=== PATIENT | female | born 1950 | race Caucasian/White ===

== ENCOUNTER 2021-12-22 09:03 | Inpatient (IN) | payer MEDICARE, OTHER, SELFPAY ==
[2021-12-21 21:01] VITALS: BMI 35.3
[2021-12-21 21:10] VITALS: BP 132/60; PULSE 65; RESP 16; TEMP 36.7; O2SAT 95
--- NOTE | 2021-12-21 21:17 | PCM.HP.STD ---
Documented by User: YOLIS Newman 12/21/21 21:36 HPI - General General Date of Admission: 12/21/21 Date of Service: 12/21/21 Chief Complaint: Abdominal pain HPI Mitra WOO, is a 71 F who presents from an outside ER with complaints of abdominal pain. Patient was transferred to [facility] for gastroenterology which outside ER does not have available. Patient states that she has had abdominal pain on and off for a month but is becoming increasingly more consistent and worsening over the past week. Patient reports a history of hypertension and GERD. Of note patient's outside laboratory values are as follows lipase 195, Sodium 141, potassium 3.3, chloride 104, CO2 26.6, glucose 159, BUN 12, creatinine 0.93, AST 193, alk phos 451, calcium 9.0, total protein 7.8, albumin 2.9, total bili 5.3, ALT 309, anion gap 14, GFR 59. White blood cell 11.8, RBC 4.62, hemoglobin 12.3, hematocrit 38.1, platelet 473. Patient also has elevated CRP at 5.7 PFSH Medical History GERD (gastroesophageal reflux disease) Hypertension Home Medications olmesartan 20 mg tablet 20 mg PO DAILY HTN 12/21/21 [History Last Taken 12/21/21] omeprazole 20 mg capsule,delayed release 20 mg PO DAILY GERD 12/21/21 [History Last Taken 12/21/21] Allergy/AdvReac Type Severity Reaction Status Date / Time No Known Allergies Allergy Verified 12/21/21 21:01 Family History Other Alzheimer disease Breast cancer Surgical History H/O knee surgery Hx of tonsillectomy Social History Smoking Status: Never smoker ROS Constitutional Constitutional: Denies anorexia, chills, fatigue, fever(s), night sweats or weakness Cardiovascular Cardiovascular: Denies chest pain, edema or palpitations Respiratory/Chest Respiratory/Chest: Denies cough, shortness of breath at rest, shortness of breath with exertion or wheezing Gastrointestinal Gastrointestinal: Reports abdominal pain, nausea and vomiting; Denies constipation or diarrhea Genitourinary Genitourinary: Denies dysuria Musculoskeletal Musculoskeletal: Denies back pain, extremity pain or joint pain Integumentary Integumentary: Denies dry skin Neurologic Neurologic: Denies abnormal gait, abnormal speech, confusion or dizziness Psychiatric Psychiatric: Denies anxiety or depression Endocrine Endocrinology: Denies change in body appearance Hematologic/Lymphatic Hematologic/Lymphatic: Denies anemia Vital Signs Vital Signs Vital Signs: 12/21/21 21:10 Temperature 98.0 F Temperature Source Oral Pulse Rate 65 Respiratory Rate 16 Blood Pressure 132/60 H Blood Pressure Mean 84 Blood Pressure Source Monitor Blood Pressure Position Semi-Fowlers Blood Pressure Location Left Forearm Pulse Ox 95 Oxygen Delivery Method Room Air Weight Weight: 205 lb 11.06 oz Body Mass Index (BMI) 35.3 Physical Exam Const alert, oriented x3 and no apparent distress HEENT normocephalic and head/scalp atraumatic Eyes conjunctivae normal and no scleral icterus Neck no lymphadenopathy and supple General: trachea midline Resp normal respiratory effort, normal air movement and clear to auscultation bilaterally Cardio regular rate, regular rhythm, S1 normal heart sound, S2 normal heart sound and peripheral pulses 2+ throughout GI normal to inspection, nondistended, normoactive bowel sounds Palpation: tender epigastric and RUQ Extremity normal capillary refill and no clubbing, cyanosis or edema Skin General Skin Exam: no breakdown Lesions: no lesions Rashes: no rashes Neuro no focal motor deficits and no sensory deficits noted Speech: speech normal Psych thought process normal, cooperative and affect normal Appearance: appropriate Assessment & Plan Assessment/Plan (1) Choledocholithiasis: PLAN: Plan 1.Choledocholithiasis -Admit to [facility] -Consult gastroenterology, case discussed with Dr. Fritz. Plan for patient to have ERCP in a.m. -N.p.o. -As needed Zofran and morphine ordered for nausea and pain -Continue IV Zosyn, patient received first dose at outside ER as patient has an elevated white blood cell count of 11.8 -Normal saline 100 mL/h ordered -CT abdomen and pelvis with contrast demonstrates 10 mm hypodensity in the left hepatic lobe that is likely a cyst. There is intrahepatic biliary dilatation. No other focal abnormalities identified. The gallbladder is distended and measures 12 x 6 x 5 cm. There are foci mildly increased attenuation in the dependent aspect of the gallbladder likely representing sludge or small calculi. The common bile duct measures 2.1 cm. There is a suggestion of an 8 mm calculus or debris at the ampulla of Vater. A small umbilical hernia with fat is also present. Abdomen and pelvis CT is otherwise unremarkable. -CBC, CMP, Phos, mag ordered for a.m. 2. Hypokalemia -Potassium 3.3, likely secondary to nausea and vomiting -Potassium chloride 40 mEq p.o. x1 ordered -CMP in a.m. 3. GERD -Patient n.p.o., IV pantoprazole given in place of p.o. omeprazole 4. Hypertension -Vital signs per protocol, currently stable -Hold olmesartan while n.p.o. -As needed hydralazine IV ordered for systolic blood pressure greater than 160 DVT prophylaxis-SCDs, pharmacological prophylaxis held in anticipation of surgical procedure This patient was seen by Florence Knutson NP-C under the supervision of Dr. Kevin. 28 minutes spent in clinical coordination of patient's plan of care. Documented by User: Dr. Frederic Kevin MD 12/22/21 01:21 HPI - General General Date of Admission: 12/21/21 [facility] Medical History GERD (gastroesophageal reflux disease) Hypertension Home Medications olmesartan 20 mg tablet 20 mg PO DAILY HTN 12/21/21 [History Last Taken 12/21/21] omeprazole 20 mg capsule,delayed release 20 mg PO DAILY GERD 12/21/21 [History Last Taken 12/21/21] Allergy/AdvReac Type Severity Reaction Status Date / Time No Known Allergies Allergy Verified 12/21/21 21:01 Family History Other Alzheimer disease Breast cancer Surgical History H/O knee surgery Hx of tonsillectomy Social History Smoking Status: Never smoker Assessment & Plan Assessment/Plan (1) Choledocholithiasis: Charges/Coding Addendum Addendum: Patient was seen and examined independently. I agree with assessment and plan by Florence Knutson, CARLOS A-C. Patient is 71-year-old female with a significant history of hypertension and GERD who presented to [facility] with 1 month history of abdominal pain that span across her upper abdomen. Patient's symptoms originally was episodic and then became persistent and constant. Earlier in the morning on the same day that she went to [facility] she initially went to see her PCP. She reports that her abdominal pain was exacerbated by her PCP palpating her abdomen. From her PCPs office and she went to the lab. Later in the same day her daughter took her to [facility] because of abdominal pain. Associated with her symptoms is dark yellow urine, nausea and vomiting. [facility] a [facility] scan of abdomen and pelvis with contrast showed biliary stones. The case was discussed with GI specialist at [facility] and hospitalist and patient was transferred to [facility]. Physical exam: General: Well-nourished, well-developed. Head: Normocephalic, atraumatic, no tenderness Eyes: Vision is grossly intact. EOMI ENT, no trauma, moist mucous membranes, no rhinorrhea Neck: Nontender, full range of motion, no spinal tenderness, deformities, step-off CVS: Regular rate and rhythm. S1-S2 present. No murmur, gallop or rub. Respiratory : clear to auscultation bilaterally, chest wall nontender, no wheezing Abdomen: Soft, nontender, nondistended, normal bowel sounds, no masses : Deferred Back: Nontender, no CVA tenderness. Extremities: Nontender full range of motion, no trauma Skin: Normal color, no trauma, abrasions Neuro: Alert, oriented, cranial nerves II through XII grossly intact. Psychiatry: Normal mood. Normal affect. Not depressed. Not anxious. Assessment and plan Cholelithiasis with acute choledocholithiasis. By radiologist interpretation CT of abdomen and pelvis at outside hospital showed distended gallbladder with debris's versus small calculi independent aspect of the gallbladder. Intrahepatic biliary dilatation. Common bile duct measuring 2.1 cm. Calculus versus debris at the ampulla. Review of outside hospital labs showed elevated AST, elevated ALT, elevated alkaline phosphatase and elevated total bilirubin of 5.3. There is no evidence of cholecystitis at this time. White count 11.8 at outside hospital. Patient was given Zosyn at outside hospital. In the setting of patient's getting a possible ERCP in a.m. will continue Zosyn for now. NPO. GI consult. General surgery consult. Supportive treatment with IV fluids, as needed IV antiemetics and as needed IV morphine for pain. Trend CBC and BMP. Hypokalemia Potassium 3.3 at outside hospital. Replaced. Trend CMP. Hypertension Blood pressure is stable. Hold home p.o. blood pressure medication secondary to n.p.o. status. As needed hydralazine ordered. Trend blood pressure and adjust blood pressure medications. GERD On home pantoprazole. While n.p.o. change to IV Protonix. DVT prophylaxis: SCD. Thirty-two minutes was spent independently and seeing patient; reviewing charts and discussing case with nursing team. Visit Charges Inpatient E&M: 31745 Init Hosp L3
[2021-12-21] MEDS: 0.9% Saline Lock 10 ML Syringe IV (21:22)
[2021-12-21] MEDS: Ondansetron 4 MG/2 ML Vial IV (21:22)
[2021-12-21] MEDS: 0.9% Normal Saline 1,000 ML 100 ML IV (21:23)
[2021-12-22] VITALS (12 sets, daily range): BP systolic 132–157; BP diastolic 60–89; PULSE 65–113; RESP 14–18; TEMP 36.6–37.6; O2SAT 92–98; BMI 35.3
[2021-12-22] MEDS: 0.9% Saline Lock 10 ML Syringe IV (01:08)
[2021-12-22] MEDS: proCHLORPERazine 10 MG/2 ML Vial 5 MG IV (01:08)
[2021-12-22] MEDS: Potassium Chloride Oral Tablet 20 MEQ 40 MEQ PO (02:35)
[2021-12-22 04:59] LABS: Absolute Lymphocyte Count 0.96 X10^3/uL (0.83-4.51); Absolute Neutrophil Count 7.6 X10^3/uL (2.0-7.7); Basophil# 0.02 X10^3/uL; Basophil% 0.2 % (0-1); Eosinophil# 0.01 X10^3/uL; Eosinophils% 0.1 % (0-5); Hematocrit 36.2 % (37-47); Hemoglobin 11.2 g/dL (12.0-15.0); Lymphocyte # 0.96 X10^3/ul (0.83-4.51); Lymphocyte % 10.3 % (19-41); Mean Corp Hgb Conc 30.9 g/dL (32-36); Mean Corpuscular Hgb 26.4 pg (27.0-32.0); Mean Corpuscular Volume 85.2 fL (81-99); Mean Platelet Vol. 10.5 fl (6.2-12.0); Monocyte# 0.75 X10^3/uL; NRBC Flagged by Analyzer 0 % (0-5); Neutrophil # 7.55 X10^3/uL (2.7-7.7); Neutrophil % 80.9 % (47-70); Platelet Count 381 K/mm3 (150-450); RBC Distribution Width SD 49.4 fl (35.1-43.9); Red Blood Count 4.25 M/mm3 (4.2-5.4); White Blood Count 9.3 K/mm3 (4.4-11.0)
[2021-12-22 05:35] LABS: Anion Gap 9 (5-15); BUN 12 mg/dL (7-18); BUN/Creat Ratio 15.9 RATIO (10-20); Calcium,Total 8.5 mg/dL (8.5-10.1); Chloride 113 mmol/L (98-107); Creatinine, Serum 0.76 mg/dL (0.55-1.02); EST Glomerular Filtration Rate 80 mL/min (>60); Est Glom Filt Rate - Afr Amer 97 mL/min (>60); Estimated Creatinine Clearance 43.91 ml/min; Glucose 122 mg/dL (74-106); Magnesium 1.9 mg/dL (1.6-2.6); Phosphorus 3.5 mg/dL (2.5-4.9); Potassium 3.6 mmol/L (3.5-5.1); Sodium Level 145 mmol/L (136-145)
--- NOTE | 2021-12-22 06:00 | EKG12_ITS ---
Test Reason : AM EKG Blood Pressure : / mmHG Vent. Rate : 065 BPM Atrial Rate : 065 BPM P-R Int : 152 ms QRS Dur : 114 ms QT Int : 418 ms P-R-T Axes : 044 -04 004 degrees QTc Int : 434 ms Normal sinus rhythm with sinus arrhythmia Incomplete right bundle branch block Confirmed by TODD DECKER, MICHEL ([id number]), acquisitions editor HAWK GOMEZ ([id number]) on 12/23/2021 9:12:48 AM Referred By: JJ Confirmed By:MICHEL BROOKS MD
[2021-12-22] MEDS: 0.9% Normal Saline 1,000 ML 100 ML IV ×2 (08:42→21:32)
[2021-12-22 08:44] LABS: AST(SGOT) 156 U/L (15-37); Alanine Aminotransfer ALT/SGPT 247 U/L (13-56); Albumin, Serum 2.3 g/dL (3.2-5.0); Alkaline Phosphatase 348 U/L (45-117); Bilirubin, Direct 4.15 mg/dL (0.00-0.30); Protein, Total 6.3 g/dL (6.4-8.2)
--- NOTE | 2021-12-22 10:07 | CON.PCM.SX_ITS ---
Assessment & Plan Assessment/Plan (1) Choledocholithiasis: PLAN: I have been consulted in conjunction with Dr. Albright. She will indepen dently evaluate this patient. Patient is scheduled to have an ERCP with Dr. Fritz today. Dr. Albright will plan to perform a laparoscopic cholecystectomy. Procedure details, risks and benefits have been explained. Patient has had the opportunity to ask and have questions answered. Patient verbally understands and agrees with the plan. NPO after midnight. Thank you for allowing us to participate in this patient's care. HPI Consult Data Date of Consult: 12/22/21 HPI Narrative Reason for Consultation: Choledocholithiasis HPI Narrative: MAY WOO, is a 71 F who was transferred from [facility] with choledocholithiasis. Patient stated for the last 1 month, she has had an increase in GERD symptoms. She noted over the weekend she had upper abdominal pain associated with GERD symptoms. Patient notes she is on 20 mg omeprazole. She notes this typically resolves her heartburn symptoms. Patient noted she had a routine follow-up yesterday with her PCP, who ordered lab work due to her presenting symptoms. Patient noted she continued with band-like abdominal pain and could not get comfortable throughout the evening and night. She noted she decided to go to the ED. She denies previous gallbladder issues or attacks. She denies associated nausea, vomiting. She notes a lack of appetite. She denies previous abdominal surgeries. She notes nausea with anesthesia. She has had multiple orthopedic procedures and tonsillectomy. CT scan of ab/pel from [place] demonstrated dilated bile ducts, cholecystitis, large gallstone. Patient also has elevated liver enzymes. [facility] Medical History GERD (gastroesophageal reflux disease) Hypertension Home Medications olmesartan 20 mg tablet 20 mg PO DAILY HTN 12/21/21 [History Last Taken 12/21/21] omeprazole 20 mg capsule,delayed release 20 mg PO DAILY GERD 12/21/21 [History Last Taken 12/21/21] Allergy/AdvReac Type Severity Reaction Status Date / Time No Known Allergies Allergy Verified 12/21/21 21:01 Family History Other Alzheimer disease Breast cancer Surgical History H/O knee surgery Hx of tonsillectomy Social History Smoking Status: Never smoker ROS Constitutional Constitutional: Reports systems reviewed and no addt'l complaints, except as documented Eyes Eyes: Reports systems reviewed and no addt'l complaints, except as documented ENT HEENT: Reports systems reviewed and no addt'l complaints, except as documented Cardiovascular Cardiovascular: Reports systems reviewed and no addt'l complaints, except as documented Respiratory/Chest Respiratory/Chest: Reports systems reviewed and no addt'l complaints, except as documented Gastrointestinal Gastrointestinal: Reports systems reviewed and no addt'l complaints, except as documented Genitourinary Genitourinary: Reports systems reviewed and no addt'l complaints, except as documented Musculoskeletal Musculoskeletal: Reports systems reviewed and no addt'l complaints, except as documented Integumentary Integumentary: Reports systems reviewed and no addt'l complaints, except as documented Neurologic Neurologic: Reports systems reviewed and no addt'l complaints, except as documented Psychiatric Psychiatric: Reports systems reviewed and no addt'l complaints, except as documented Endocrine Endocrinology: Reports systems reviewed and no addt'l complaints, except as documented Hematologic/Lymphatic Hematologic/Lymphatic: Reports systems reviewed and no addt'l complaints, except as documented Allergic/Immunologic Allergic/Immunologic: Reports systems reviewed and no addt'l complaints, except as documented Physical Exam Const alert, oriented x3 and no apparent distress HEENT normocephalic and head/scalp atraumatic Eyes PERRL Neck full ROM Lymph Lymphatic: no lymphadenopathy noted Resp normal respiratory effort and clear to auscultation bilaterally Cardio regular rate and regular rhythm GI soft to palpation, non-tender and non-distended Extremity normal to inspection Skin no rashes or lesions noted Neuro no focal motor deficits and no sensory deficits noted Psych mental status grossly normal and thought process normal Lab / Micro Data Result Diagrams: 12/22/21 04:45 12/22/21 04:45 Labs: Laboratory Results - last 24 hr 12/22/21 04:45: WBC 9.3, RBC 4.25, Hgb 11.2 L, Hct 36.2 L, MCV 85.2, MCH 26.4 L, MCHC 30.9 L, RDW Std Deviation 49.4 H, RDW Coeff of Lilian 16.0 H, Plt Count 381, MPV 10.5, Immature Gran % (Auto) 0.500, Neut % (Auto) 80.9 H, Lymph % (Auto) 10.3 L, [place] % (Auto) 8.0, Eos % (Auto) 0.1, Baso % (Auto) 0.2, Absolute Neuts (auto) 7.6, Absolute Lymphs (auto) 0.96, Nucleated RBC % 0 12/22/21 04:45: Sodium 145, Potassium 3.6, Chloride 113 H, Carbon Dioxide 23.0, Anion Gap 9, BUN 12, Creatinine 0.76, Estim Creat Clear Calc 43.91, Est GFR (MDRD) Af Amer 97, Est GFR (MDRD) Non-Af 80, BUN/Creatinine Ratio 15.9, Glucose 122 H, Calcium 8.5, Phosphorus 3.5, Magnesium 1.9 12/22/21 04:45: Total Bilirubin 4.40 H, Direct Bilirubin 4.15 H, AST 156 H, ALT 247 H, Alkaline Phosphatase 348 H, Total Protein 6.3 L, Albumin 2.3 L, Globulin 4.0 Charges/Coding Visit Charges Office Visits / Consults: 14224 IP Consult L3
--- NOTE | 2021-12-22 11:34 | PCM.CONS.GEN ---
Assessment & Plan Assessment/Plan (1) Choledocholithiasis: PLAN: Patient will undergo ERCP. She was explained alternatives, risk, benefits including outstanding bleeding, infection, sepsis, perforation, post ERCP pancreatitis, need for emergent surgery and . She will have an ASA of 1. Continue antibiotics and n.p.o. HPI Consult Data Date of Consult: 12/21/21 HPI Narrative Reason for Consultation: Choledocholithiasis HPI Narrative: MAY WOO, is a 71 F who presents from an outside hospital with abdominal pain and jaundice.?P Patient states that she has had abdominal pain on and off for a month but is becoming increasingly more consistent and worsening over the past week.? Patient reports a history of hypertension and GERD.? Of note patient's outside laboratory values are as follows lipase 195, Sodium 141, potassium 3.3, chloride 104, CO2 26.6, glucose 159, BUN 12, creatinine 0.93, AST 193, alk phos 451, calcium 9.0, total protein 7.8, albumin 2.9, total bili 5.3, ALT 309, anion gap 14, GFR 59.? White blood cell 11.8, RBC 4.62, hemoglobin 12.3, hematocrit 38.1, platelet 473.? Patient also has elevated CRP at 5.7. I requested that she be started on Zosyn therapy. Her abdominal pain is at a 2 out of 10 at this time. She denies any nausea. She still having darkened urine. Her stools have been less brown over the last several weeks. She denies any weight loss. She has not had any abdominal surgeries. All other 16 review of systems are negative except those pertinent positive mentioned HPI. [facility] Medical History GERD (gastroesophageal reflux disease) Hypertension Home Medications olmesartan 20 mg tablet 20 mg PO DAILY HTN 12/21/21 [History Last Taken 12/21/21] omeprazole 20 mg capsule,delayed release 20 mg PO DAILY GERD 12/21/21 [History Last Taken 12/21/21] Allergy/AdvReac Type Severity Reaction Status Date / Time No Known Allergies Allergy Verified 12/21/21 21:01 Family History Other Alzheimer disease Breast cancer Surgical History H/O knee surgery Hx of tonsillectomy Social History Smoking Status: Never smoker ROS Constitutional Constitutional: Reports systems reviewed and no addt'l complaints, except as documented Eyes Eyes: Reports systems reviewed and no addt'l complaints, except as documented ENT HEENT: Reports systems reviewed and no addt'l complaints, except as documented Cardiovascular Cardiovascular: Reports systems reviewed and no addt'l complaints, except as documented Respiratory/Chest Respiratory/Chest: Reports systems reviewed and no addt'l complaints, except as documented Gastrointestinal Gastrointestinal: Reports systems reviewed and no addt'l complaints, except as documented Genitourinary Genitourinary: Reports systems reviewed and no addt'l complaints, except as documented Musculoskeletal Musculoskeletal: Reports systems reviewed and no addt'l complaints, except as documented Integumentary Integumentary: Reports systems reviewed and no addt'l complaints, except as documented Neurologic Neurologic: Reports systems reviewed and no addt'l complaints, except as documented Psychiatric Psychiatric: Reports systems reviewed and no addt'l complaints, except as documented Endocrine Endocrinology: Reports systems reviewed and no addt'l complaints, except as documented Hematologic/Lymphatic Hematologic/Lymphatic: Reports systems reviewed and no addt'l complaints, except as documented Allergic/Immunologic Allergic/Immunologic: Reports systems reviewed and no addt'l complaints, except as documented Physical Exam Const alert, oriented x3 and no apparent distress HEENT normocephalic and head/scalp atraumatic Eyes PERRL Neck full ROM Lymph Lymphatic: no lymphadenopathy noted Resp normal respiratory effort and clear to auscultation bilaterally Cardio regular rate and regular rhythm GI soft to palpation, non-tender and non-distended Extremity normal to inspection Skin no rashes or lesions noted Neuro no focal motor deficits and no sensory deficits noted Psych mental status grossly normal and thought process normal Lab / Micro Data Result Diagrams: 12/22/21 04:45 12/22/21 04:45 Labs: Laboratory Results - last 24 hr 12/22/21 04:45: WBC 9.3, RBC 4.25, Hgb 11.2 L, Hct 36.2 L, MCV 85.2, MCH 26.4 L, MCHC 30.9 L, RDW Std Deviation 49.4 H, RDW Coeff of Lilian 16.0 H, Plt Count 381, MPV 10.5, Immature Gran % (Auto) 0.500, Neut % (Auto) 80.9 H, Lymph % (Auto) 10.3 L, [place] % (Auto) 8.0, Eos % (Auto) 0.1, Baso % (Auto) 0.2, Absolute Neuts (auto) 7.6, Absolute Lymphs (auto) 0.96, Nucleated RBC % 0 12/22/21 04:45: Sodium 145, Potassium 3.6, Chloride 113 H, Carbon Dioxide 23.0, Anion Gap 9, BUN 12, Creatinine 0.76, Estim Creat Clear Calc 43.91, Est GFR (MDRD) Af Amer 97, Est GFR (MDRD) Non-Af 80, BUN/Creatinine Ratio 15.9, Glucose 122 H, Calcium 8.5, Phosphorus 3.5, Magnesium 1.9 12/22/21 04:45: Total Bilirubin 4.40 H, Direct Bilirubin 4.15 H, AST 156 H, ALT 247 H, Alkaline Phosphatase 348 H, Total Protein 6.3 L, Albumin 2.3 L, Globulin 4.0 Charges/Coding Visit Charges Inpatient E&M: 90907 Init Hosp L2
[2021-12-22] MEDS: Lactated Ringers 1,000 ML 15 ML IV (15:50)
--- NOTE | 2021-12-22 18:00 | RAD_ITS ---
EXAM: INTRAOPERATIVE CHOLANGIOGRAM FLUOROSCOPY TIME: 92.2 seconds RADIATION DOSE: 26.3 mGy TOTAL NUMBER OF IMAGES: 1 COMPARISON: None. PROVIDED CLINICAL HISTORY: STONES PAIN TECHNIQUE: The examination was performed with physician in attendance. Under fluoroscopic observation, fluoroscopic images were obtained in the operating room. FINDINGS: First image demonstrates surgical instruments overlying the [id number]. Contrast is identified in a cannulated common bile duct. There ARE filling defects in the common bile duct. Retrograde contrast is notseen in the pancreatic duct. Contrast is not noted in the proximal duodenum. Contrast is seen in the intrahepatic ducts. RAD/ERCP Biliary/Pancreas IMPRESSION: Fluoroscopic assistance images were obtained. Pertinent findings noted above. Electronically Signed: Ernie Hopkins MD at 19:27 EDT ,
--- NOTE | 2021-12-22 18:36 | OP.CCLET_ITS ---
12/22/2021 Sonja Esparza Re : ERCP procedure for [place] Dear Isaias This procedure was performed on Wednesday, December 22, 2021. My impressions and recommendations are as follows: Impressions : - The entire main bile duct was dilated, with a stone causing an obstruction. - Choledocholithiasis was found. Partial removal was accomplished with biliary sphincterotomy; a stent was inserted. - A biliary sphincterotomy was performed. - The biliary tree was swept. - Common bile duct was successfully dilated. - One temporary stent was placed into the common bile duct. Recommendations : My findings are described in the full procedure note, which is enclosed. If I can be of further assistance, please feel free to contact me at . Sincerely, Antoine Fritz, 12/22/2021 6:35:34 PM This report has been signed electronically.
--- NOTE | 2021-12-22 18:36 | OP.ERCP_ITS ---
Patient Name: Irish Lagos Procedure Date: 12/22/2021 5:46 PM Date of : 1950 Age: 71 Procedure: ERCP Indications: Bile duct stone(s) Providers: Antoine Fritz DO Medicines: General Anesthesia Patient Profile: This is a 71 year old female. Refer to note in patient chart for documentation of history and physical. Patient has symptoms of acute epigastric abdominal pain and acute jaundice. Complications: No immediate complications. Procedure: Pre-Anesthesia Assessment: - Prior to the procedure, a History and Physical was performed, and patient medications and allergies were reviewed. The patient is competent. The risks and benefits of the procedure and the sedation options and risks were discussed with the patient. All questions were answered and informed consent was obtained. Patient identification and proposed procedure were verified by the physician in the pre-procedure area. Mental Status Examination: alert and oriented. Airway Examination: normal oropharyngeal airway and neck mobility. Respiratory Examination: clear to auscultation. CV Examination: normal. Prophylactic Antibiotics: The patient does not require prophylactic antibiotics. Prior Anticoagulants: The patient has taken no previous anticoagulant or antiplatelet agents. After reviewing the risks and benefits, the patient was deemed in satisfactory condition to undergo the procedure. The anesthesia plan was to use moderate sedation / analgesia (conscious sedation). Immediately prior to administration of medications, the patient was re-assessed for adequacy to receive sedatives. The heart rate, respiratory rate, oxygen saturations, blood pressure, adequacy of pulmonary ventilation, and response to care were monitored throughout the procedure. The physical status of the patient was re-assessed after the procedure. After obtaining informed consent, the scope was passed under direct vision. Throughout the procedure, the patient's blood pressure, pulse, and oxygen saturations were monitored continuously. The Duodenoscope was introduced through the mouth, and advanced to the duodenum and used to inject contrast into the bile duct. The ERCP was accomplished without difficulty. The patient tolerated the procedure well. Scope In: 6:04:41 PM Scope Out: 6:27:51 PM Total Procedure Duration Time 0 hours 23 minutes 10 seconds Findings: The screen printing press operator film was normal. The esophagus was successfully intubated under direct vision. The scope was advanced to a normal major papilla in the descending duodenum without detailed examination of the pharynx, larynx and associated structures, and upper GI tract. The upper GI tract was grossly normal. The bile duct was deeply cannulated with the short-nosed traction sphincterotome. Contrast was injected. I personally interpreted the bile duct images. There was brisk flow of contrast through the ducts. Image quality was excellent. Contrast extended to the main bile duct. Opacification of the entire biliary tree except for the cystic duct and gallbladder was successful. The maximum diameter of the ducts was 10 mm. The lower third of the main bile duct contained two stones, the largest of which was 6 mm in diameter. The main bile duct was diffusely dilated, with a stone causing an obstruction. The largest diameter was 10 mm. A straight Roadrunner wire was passed into the biliary tree. A 5 mm biliary sphincterotomy was made with a traction (standard) sphincterotome using ERBE electrocautery. Severe bleeding from the sphincterotomy continued for over 5 minutes. The biliary tree was swept with a 15 mm balloon starting at the bifurcation. Sludge was swept from the duct. Two stones were removed. Two stones remained. Dilation of the common bile duct with a 6-7-8 mm balloon (to a maximum balloon size of 8 mm) dilator was successful. One 10 Fr by 9 cm temporary stent with two internal flaps was placed 5 cm into the common bile duct. Bile flowed through the stent. The stent was in good position. Impression: - The entire main bile duct was dilated, with a stone causing an obstruction. - Choledocholithiasis was found. Partial removal was accomplished with biliary sphincterotomy; a stent was inserted. - A biliary sphincterotomy was performed. - The biliary tree was swept. - Common bile duct was successfully dilated. - One temporary stent was placed into the common bile duct. Procedure Code(s): --- Professional --- 60970, Endoscopic retrograde cholangiopancreatography (ERCP); with placement of endoscopic stent into biliary or pancreatic duct, including pre- and post-dilation and guide wire passage, when performed, including sphincterotomy, when performed, each stent 22081, Endoscopic retrograde cholangiopancreatography (ERCP); with removal of calculi/debris from biliary/pancreatic duct(s) 57200, 26, Endoscopic catheterization of the biliary ductal system, radiological supervision and interpretation CPT copyright 2017 [employer]. All rights reserved. The codes documented in this report are preliminary and upon winter sports manager review may be revised to meet current compliance requirements. Antoine Fritz DO 12/22/2021 6:35:34 PM This report has been signed electronically. Number of Addenda: 0 Note Initiated On: 12/22/2021 5:46 PM
--- NOTE | 2021-12-22 19:06 | PN.HOSP_ITS ---
Subjective Subjective Patient was seen and examined today, she underwent an ERCP today by gastroenterology, choledocholithiasis was found and partial removal was accomplished with a biliary sphincterotomy and stent placement. Patient will be scheduled to undergo cholecystectomy tomorrow. Objective Data Objective Data Vital Signs: Vital Signs Temp Pulse Resp BP Pulse Ox O2 Del Method 99.6 F H 83 16 135/71 H 94 Room Air 12/22/21 18:39 12/22/21 19:00 12/22/21 19:00 12/22/21 19:00 12/22/21 19:00 12/22/21 19:00 Oxygen Delivery Method Room Air Weight: 93.3 kg Body Mass Index (BMI) 35.3 Intake & Output: Intake and Output for Last 24 Hours 12/20/21 12/21/21 12/22/21 23:59 23:59 23:59 Intake Total 126 / 126 1972.92 / 1971. Output Total 300 / 300 Balance 126 / 126 1672.92 / 1672.92 Lab / Micro Data Result Diagrams: 12/22/21 04:45 12/22/21 04:45 Labs: Laboratory Results - last 24 hr 12/22/21 04:45: WBC 9.3, RBC 4.25, Hgb 11.2 L, Hct 36.2 L, MCV 85.2, MCH 26.4 L, MCHC 30.9 L, RDW Std Deviation 49.4 H, RDW Coeff of Lilian 16.0 H, Plt Count 381, MPV 10.5, Immature Gran % (Auto) 0.500, Neut % (Auto) 80.9 H, Lymph % (Auto) 10.3 L, Angelina % (Auto) 8.0, Eos % (Auto) 0.1, Baso % (Auto) 0.2, Absolute Neuts (auto) 7.6, Absolute Lymphs (auto) 0.96, Nucleated RBC % 0 12/22/21 04:45: Sodium 145, Potassium 3.6, Chloride 113 H, Carbon Dioxide 23.0, Anion Gap 9, BUN 12, Creatinine 0.76, Estim Creat Clear Calc 43.91, Est GFR (MDRD) Af Amer 97, Est GFR (MDRD) Non-Af 80, BUN/Creatinine Ratio 15.9, Glucose 122 H, Calcium 8.5, Phosphorus 3.5, Magnesium 1.9 12/22/21 04:45: Total Bilirubin 4.40 H, Direct Bilirubin 4.15 H, AST 156 H, ALT 247 H, Alkaline Phosphatase 348 H, Total Protein 6.3 L, Albumin 2.3 L, Globulin 4.0 Physical Exam Const alert, oriented x3, no apparent distress and healthy appearing General Appearance: cooperative, well kempt and well developed Orientation / Consciousness: awake, oriented to person, oriented to place and oriented to time HEENT normocephalic, head/scalp atraumatic and moist oral mucous membranes Eyes PERRL, EOMs intact bilaterally and conjunctivae normal Neck supple, no JVD, thyroid normal and no carotid bruits General: trachea midline Resp normal respiratory effort, no retractions, no use of accessory muscles and clear to auscultation bilaterally Auscultation: Negative for rales, rhonchi or wheezes Cardio regular rate, regular rhythm, S1 normal heart sound, S2 normal heart sound, no murmurs, no rub and no gallops GI normal to inspection, nondistended, normoactive bowel sounds, soft to palpation, non-tender and non-distended Extremity no clubbing, cyanosis or edema Skin no rashes or lesions noted General Skin Exam: no breakdown Neuro oriented x3, CN's II-XII intact bilaterally, moves all extremities, no focal motor deficits and no sensory deficits noted Sensorium / Orientation: awake and alert Speech: speech normal Psych affect normal Assessment & Plan Assessment/Plan (1) Choledocholithiasis: PLAN: Plan 1. Choledocholithiasis-patient is being seen by general surgery, it is planned that she will undergo a cholecystectomy tomorrow, again she was seen by gastroenterology today who placed a biliary stent and did a sphincterotomy. Patient is currently on Zosyn. #2 essential hypertension-patient's blood pressure is under control at this time, patient's blood pressure medication was being held at this time, I have elected to hold at and reevaluate her tomorrow. #3 hypokalemia-corrected at this time, patient was given potassium replacement, patient's potassium this morning was 3.6 #4 GERD-patient is on Protonix Charges/Coding Visit Charges Inpatient E&M: 56529 Init Hosp L3
[2021-12-23] VITALS (16 sets, daily range): BP systolic 132–160; BP diastolic 68–95; PULSE 51–75; RESP 16–18; TEMP 36.2–36.7; O2SAT 91–100; BMI 35.1; BMI 93.3
[2021-12-23] MEDS: 0.9% Normal Saline 1,000 ML 100 ML IV ×3 (06:01→21:49)
[2021-12-23 09:30] LABS: Absolute Lymphocyte Count 1.15 X10^3/uL (0.83-4.51); Absolute Neutrophil Count 5.9 X10^3/uL (2.0-7.7); Basophil# 0.02 X10^3/uL; Basophil% 0.3 % (0-1); Hematocrit 35.9 % (37-47); Hemoglobin 11.2 g/dL (12.0-15.0); Lymphocyte # 1.15 X10^3/ul (0.83-4.51); Lymphocyte % 15.4 % (19-41); Mean Corp Hgb Conc 31.2 g/dL (32-36); Mean Corpuscular Hgb 26.4 pg (27.0-32.0); Mean Corpuscular Volume 84.7 fL (81-99); Mean Platelet Vol. 10.6 fl (6.2-12.0); Monocyte# 0.37 X10^3/uL; NRBC Flagged by Analyzer 0 % (0-5); Neutrophil # 5.87 X10^3/uL (2.7-7.7); Neutrophil % 78.6 % (47-70); Platelet Count 386 K/mm3 (150-450); RBC Distribution Width CV 16.6 % (11.6-14.6); RBC Distribution Width SD 50.7 fl (35.1-43.9); Red Blood Count 4.24 M/mm3 (4.2-5.4); White Blood Count 7.5 K/mm3 (4.4-11.0)
[2021-12-23 09:55] LABS: AST(SGOT) 146 U/L (15-37); Alanine Aminotransfer ALT/SGPT 237 U/L (13-56); Albumin, Serum 2.3 g/dL (3.2-5.0); Alkaline Phosphatase 393 U/L (45-117); Anion Gap 8 (5-15); BUN 15 mg/dL (7-18); BUN/Creat Ratio 17.7 RATIO (10-20); Bilirubin, Direct 4.24 mg/dL (0.00-0.30); Calcium,Total 8.6 mg/dL (8.5-10.1); Chloride 114 mmol/L (98-107); Creatinine, Serum 0.85 mg/dL (0.55-1.02); EST Glomerular Filtration Rate 70 mL/min (>60); Est Glom Filt Rate - Afr Amer 85 mL/min (>60); Estimated Creatinine Clearance 51.66 ml/min; Globulin 4.5 g/dL (2.2-4.2); Glucose 98 mg/dL (74-106); Potassium 3.9 mmol/L (3.5-5.1); Protein, Total 6.8 g/dL (6.4-8.2); Sodium Level 144 mmol/L (136-145)
--- NOTE | 2021-12-23 10:55 | CASEMGMT ---
RN CM Face to Face with patient for initial transition planning/care coordination assessment. RN CM introduced self and role at [facility]. Patient lying in bed, alert and oriented. Patient willing to participate in assessment and is able to answer all questions appropriately. Care providers, pharmacy, and demographics verified. Patient wishes to discharge home, denies need for home health at this time. Patient states she has no further needs or concerns at this time. CM to follow for discharge planning needs that may arise. PCP: NICOLE Ulloa Specialists: Nish block feeder Preferred Pharmacy: [facility]; [facility] retail at discharge. Insurance: [employer] Prescription Benefit: yes Living Will/HPOA: yes, daughter Sonja Funk LNOK: daughter Living Arrangements: Patient lives with daughter and CINTHYA in a 2 story home. Patient states she is independent and able to ambulate stairs. Transportation: self, daughter DME/HHC: Patient has raised toilet, cane, walker, and grab bars at home. No previous HHC or SNF Disposition Plan: Patient to discharge home with family support and follow-up plans in place. Taty TROTTER, RN, CM
--- NOTE | 2021-12-23 12:20 | NURSING ---
To OR via bed w/ surgery staff-[id number] analia sent w/pt
--- NOTE | 2021-12-23 13:30 | GALL_PTH ---
PATIENT: MAY WOO LOC: MS3 U#:[id number] AGE/SX: 71/F ROOM: DC317 RE12/22/[address]: Dr. Raul Irby DO : 1950 BED: 1 DIS: 12/25/2021 SPEC #: [id number] RECD: 12/24/21 10:57 STATUS: LEATHA MERCHANT #: [id number] ELIZABETH: 12/23/21 13:[address]: Raul Irby DEPT: SURGICAL PATHOLOGY RECD BY: Sherine Lang ENTERED: 12/24/21 11:29 SP TYPE: ELIOT FAULKNER DR: MD Dr. Sonja Shankar MD Dr. Tamera Robotham, MD Tissues: Gallbladder, NOS Procedures: Surgery Specimen Level III HEADER OPERATION: Laparoscopic cholecystectomy with IOC PRE-OP DIAGNOSIS: Choledocholithiasis TISSUE SUBMITTED: Gallbladder MICROSCOPIC DIAGNOSIS Gallbladder, cholecystectomy: Acute and chronic cholecystitis. AM:david 12/25/2021 MICROSCOPIC DESCRIPTION Slides are reviewed. GROSS DESCRIPTION Received is one container labeled with the patient's name and designated gallbladder. The specimen consists of a gallbladder measuring 10 cm in length and up to 4 cm in diameter. The external surface is pink-hurd, smooth and glistening for the most part. Focally it is granular, hemorrhagic and contains cautery artifact. The gallbladder contains a small amount of turbid, yellowish-pink bile. No stones are identified in the container or in the gallbladder. The mucosa is bile-stained and without any mass lesions. The gallbladder wall measures up to 0.5 cm in thickness. Hall Porter sections from the gallbladder and the cystic duct are submitted in one cassette. / SJ:david 12/24/2021 TC:3 CPT: 25162
--- NOTE | 2021-12-23 14:20 | RAD_ITS ---
STUDY: INTRAOPERATIVE CHOLANGIOGRAM. REASON FOR EXAM: Female, 71 years old. Laparoscopic cholecystectomy. FLUOROSCOPY TIME (if supplied): ( 13.5 seconds ) minutes/seconds. A single loop of 65 images were submitted. TECHNIQUE: An intraoperative cholangiogram was performed by the surgeon. Imaging was submitted. COMPARISON: None. FINDINGS: Dilated central intrahepatic biliary ducts and common bile duct. A biliary stent is seen within the common bile duct. Multiple filling defects are seen in the common bile duct. There is free flow of contrast into the duodenum. RAD/Cholangiogram/ O R,Initial IMPRESSION: Dilated central intrahepatic biliary ducts and common bile duct. Biliary stent is seen. Multiple stones are seen in the common bile duct. Contrast is seen entering the duodenum. Electronically Signed: Wesley Benitez MD at 15:34 EDT ,
--- NOTE | 2021-12-23 15:20 | OP.PCM_ITS ---
Report of Operation Date of Procedure: 12/23/21 Pre-Operative Diagnosis: Choledocholithiasis, acute cholecystitis, cholelithias is Post-Operative Diagnosis: Same Surgery/Procedure Performed:: Laparoscopic cholecystectomy with cholangiograms Surgeon: Nora Albright edging machine operator: Leeanna Ayala Type of Anesthesia: General/Supplemental Anesthesiologist: Bill Rees Special Medications: Zosyn 3.375 g IV every 8 hours on the floor for acute cholecystitis/choledocholithiasis Specimen's removed: Gallbladder Estimated Blood Loss (mL): 20 cc Description of Procedure: Indications: this is a 71 year-old female who developed abdominal pain/nausea/vomiting and on workup was found to have choledocholithiasis, acute cholecystitis, cholelithiasis, with a dilated common bile duct. Laparoscopic cholecystectomy was elected. Description procedure: The patient was placed on operating table in supine position. A timeout was completed verifying correct patient, procedure, site, position and special equipment prior to beginning procedure. General Anesthesia was induced. The abdomen was prepped and draped in usual sterile fashion. An incision was made in the natural skin line above the umbilicus. The fascia was elevated and incised. The peritoneum was elevated and incised. Entry into the peritoneum was confirmed visually and no bowel was noted in the vicinity of the incision. Myers trocar was placed. The abdomen was insufflated with carbon dioxide to a pressure of 12-15 mmHg. Patient tolerated insufflation well. The laparoscope was then inserted and abdomen inspected. No injuries from initial trocar placement were noted. Additional trochars were then inserted in the following locations 5 mm trocar in the epigastrium and 2 more 5 mm trochars along the right costal margin. The abdomen was inspected no abnormalities were found. The table is placed in reverse Trendelenburg position with the right side up. The gallbladder was noted to be inflamed and edematous plane between the gallbladder fossa and gallbladder wall. The adhesions between the gallbladder and omentum were lysed sharply. The dome of the gallbladder was grasped with atraumatic grasper passed through the lateral port and retracted over the dome of the liver. Infundibulum was then grasped with atraumatic grasper through the midclavicular port and retracted to the right lower quadrant. This maneuver exposed Calot's triangle. The peritoneum overlying the gallbladder infundibulum was then incised and cystic duct and artery identified and circumferentially dissected. Mosqueda catheter was used for cholangiograms. The cholangiogram showed filling defects of the common bile duct with filling of the duodenum, common bile duct stent in place, good filling of the right and left bile ducts. Cystic duct was larger in size and the epigastric port was enlarged 12 mm port to accommodate a 10 mm clips. The cystic duct and artery were then doubly clipped and divided close to the gallbladder. The gallbladder then dissected from its peritoneal attachments by electrocautery. Hemostasis was checked and the gallbladder and contained stones were removed using the endoscopic retrieval bag through the umbilical port. The gallbladder is passed off table as specimen. The gallbladder fossa was irrigated with saline and hemostasis obtained. There is no evidence of bleeding from the gallbladder fossa or cystic artery leakage of bile from the cystic duct stump. Secondary trochars removed under direct vision. No bleeding was noted the trocar sites. The laparoscope was withdrawn and umbilical trocar removed. The abdomen was allowed to collapse. The fascia of the 12 mm trocars were closed with a tetkfe-cm-mydar 0 Vicryl suture. The skin was closed with sutures of 4-0 Monocryl and Steri-Strips. The patient was extubated. The patient tolerated procedure well and was taken to the postanesthesia care unit in stable condition. Complications none
--- NOTE | 2021-12-23 15:36 | DCINST_ITS ---
Discharge Instructions Diet Discharge Diet: Light diet - advance as tolerated Activity Discharge Activity: May Not Drive (while taking narcotic pain medications.) May shower in (days): 1 Lifting Restrictions: no lifting >20 lbs x 2 wks, no strenuous exercise for 4 wks Dressing / Incision Call your doctor if your incision/area has: Continuous Slow Oozing, Sudden Increased Bleeding, Increased Pain/ Swelling, Increased Redness, Foul Smelling Discharge and Swelling at the incision site Call your doctor if you observe: Fever of 101 or Higher Remove Dressing in: 2 days Cleanse incision/area with: Soap & Water Additional Dressing/Incision Instructions:: Steri-Strips will fall off in 7 to 10 days, if they do not fall off okay to remove after 10 days. Follow Up Care Please Follow Up With: Nora Albright MD When: Call the office for a follow-up appointment 2 weeks; after 5 PM and on the weekends call [phone] with any concerns. Test Results: Test results from this visit will be discussed in further detail at your follow- up appointment, if applicable. Discharge Plan Admission Admit Date/Time: 12/22/21 09:03 Attending Provider: Raul Irby Primary Care Provider: Sonja Esparza Consulting Providers: Frederic Kevin ; Nora Albright Discharge Orders/Prescriptions Prescriptions: No Action omeprazole 20 mg capsule,delayed release(DR/EC) 20 mg PO DAILY olmesartan 20 mg tablet 20 mg PO DAILY Referrals / Follow Up: Sonja Esparza MD [Primary Care Provider] -
--- NOTE | 2021-12-23 17:20 | PCM.PROGNOTE ---
Subjective Subjective She is feeling a lot better today. She is status post ERCP with stone removal and stent placement. She is awaiting a cholecystectomy today. Objective Data Objective Data Vital Signs: Vital Signs Temp Pulse Resp BP Pulse Ox O2 Del Method O2 Flow Rate 98.1 F 51 L 16 132/71 H 95 Nasal Cannula 2 12/23/21 15:40 12/23/21 17:15 12/23/21 17:15 12/23/21 17:15 12/23/21 17:15 12/23/21 17:15 12/23/21 17:15 Oxygen Flow Rate (L/min) 2 Oxygen Delivery Method Nasal Cannula Weight: 205 lb 11.06 oz Body Mass Index (BMI) 35.1 Intake & Output: Intake and Output for Last 24 Hours 12/21/21 12/22/21 12/23/21 23:59 23:59 23:59 Intake Total 126 / 126 2342.75 / 2342.75 2438.33 / 2438.33 Output Total 800 / 800 Balance 126 / 126 1542.75 / 1542.75 2438.33 / 2438.33 Lab / Micro Data Result Diagrams: 12/23/21 09:20 12/23/21 09:20 Labs: Laboratory Results - last 24 hr 12/23/21 09:20: WBC 7.5, RBC 4.24, Hgb 11.2 L, Hct 35.9 L, MCV 84.7, MCH 26.4 L, MCHC 31.2 L, RDW Std Deviation 50.7 H, RDW Coeff of Lilian 16.6 H, Plt Count 386, MPV 10.6, Immature Gran % (Auto) 0.700, Neut % (Auto) 78.6 H, Lymph % (Auto) 15.4 L, [place] % (Auto) 5.0, Eos % (Auto) 0.0, Baso % (Auto) 0.3, Absolute Neuts (auto) 5.9, Absolute Lymphs (auto) 1.15, Nucleated RBC % 0 12/23/21 09:20: Sodium 144, Potassium 3.9, Chloride 114 H, Carbon Dioxide 22.0, Anion Gap 8, BUN 15, Creatinine 0.85, Estim Creat Clear Calc 51.66, Est GFR (MDRD) Af Amer 85, Est GFR (MDRD) Non-Af 70, BUN/Creatinine Ratio 17.7, Glucose 98, Calcium 8.6, Total Bilirubin 4.80 H, Direct Bilirubin 4.24 H, AST 146 H, ALT 237 H, Alkaline Phosphatase 393 H, Total Protein 6.8, Albumin 2.3 L, Globulin 4.5 H Radiography Diagnostic Testing: Radiology Impression Endo Retro Cholangiopancreatogram 12/22/21 18:00 IMPRESSION: Fluoroscopic assistance images were obtained. Pertinent findings noted above. Electronically Signed: Ernie Hopkins MD at 19:27 EDT , Cholangiogram 12/23/21 14:20 IMPRESSION: Dilated central intrahepatic biliary ducts and common bile duct. Biliary stent is seen. Multiple stones are seen in the common bile duct. Contrast is seen entering the duodenum. Electronically Signed: Wesley Benitez MD at 15:34 EDT , Physical Exam Const alert, oriented x3, no apparent distress and healthy appearing General Appearance: cooperative, well kempt and well developed Orientation / Consciousness: awake, oriented to person, oriented to place and oriented to time HEENT normocephalic, head/scalp atraumatic and moist oral mucous membranes Eyes PERRL, EOMs intact bilaterally and conjunctivae normal Neck supple, no JVD, thyroid normal and no carotid bruits General: trachea midline Resp normal respiratory effort, no retractions, no use of accessory muscles and clear to auscultation bilaterally Auscultation: Negative for rales, rhonchi or wheezes Cardio regular rate, regular rhythm, S1 normal heart sound, S2 normal heart sound, no murmurs, no rub and no gallops GI normal to inspection, nondistended, normoactive bowel sounds, soft to palpation, non-tender and non-distended Extremity no clubbing, cyanosis or edema Skin no rashes or lesions noted General Skin Exam: no breakdown Neuro oriented x3, CN's II-XII intact bilaterally, moves all extremities, no focal motor deficits and no sensory deficits noted Sensorium / Orientation: awake and alert Speech: speech normal Psych affect normal Assessment & Plan Assessment/Plan (1) Choledocholithiasis: PLAN: She will need to undergo a repeat ERCP with spyglass and stone removal. She has a large duodenal diverticulum which makes it very difficult to remove the stones via balloon extraction. Hopefully will be able to do lithotripsy to break all the stones and remove them safely. Charges/Coding Visit Charges Inpatient E&M: 48956 Subs Hosp L2
--- NOTE | 2021-12-23 19:22 | PN.HOSP_ITS ---
Subjective Subjective Patient was seen and examined today, she underwent a laparoscopic cholecystectomy with cholangiograms today, according to notation, patient will have to undergo repeat ERCP with stone removal tomorrow Objective Data Objective Data Vital Signs: Vital Signs Temp Pulse Resp BP Pulse Ox O2 Del Method O2 Flow Rate 97.2 F L 64 16 151/79 H 95 Room Air 2 12/23/21 18:00 12/23/21 18:00 12/23/21 18:00 12/23/21 18:00 12/23/21 18:00 12/23/21 18:00 12/23/21 17:20 Oxygen Flow Rate (L/min) 2 Oxygen Delivery Method Room Air Weight: 93.3 kg Body Mass Index (BMI) 35.1 Intake & Output: Intake and Output for Last 24 Hours 12/21/21 12/22/21 12/23/21 23:59 23:59 23:59 Intake Total 126 / 126 2342.75 / 2342.75 2468.33 / 2468.33 Output Total 800 / 800 Balance 126 / 126 1542.75 / 1542.75 2468.33 / 2468.33 Lab / Micro Data Result Diagrams: 12/23/21 09:20 12/23/21 09:20 Labs: Laboratory Results - last 24 hr 12/23/21 09:20: WBC 7.5, RBC 4.24, Hgb 11.2 L, Hct 35.9 L, MCV 84.7, MCH 26.4 L, MCHC 31.2 L, RDW Std Deviation 50.7 H, RDW Coeff of Lilian 16.6 H, Plt Count 386, MPV 10.6, Immature Gran % (Auto) 0.700, Neut % (Auto) 78.6 H, Lymph % (Auto) 15.4 L, [place] % (Auto) 5.0, Eos % (Auto) 0.0, Baso % (Auto) 0.3, Absolute Neuts (auto) 5.9, Absolute Lymphs (auto) 1.15, Nucleated RBC % 0 12/23/21 09:20: Sodium 144, Potassium 3.9, Chloride 114 H, Carbon Dioxide 22.0, Anion Gap 8, BUN 15, Creatinine 0.85, Estim Creat Clear Calc 51.66, Est GFR (MDRD) Af Amer 85, Est GFR (MDRD) Non-Af 70, BUN/Creatinine Ratio 17.7, Glucose 98, Calcium 8.6, Total Bilirubin 4.80 H, Direct Bilirubin 4.24 H, AST 146 H, ALT 237 H, Alkaline Phosphatase 393 H, Total Protein 6.8, Albumin 2.3 L, Globulin 4.5 H Radiography Diagnostic Testing: Radiology Impression Endo Retro Cholangiopancreatogram 12/22/21 18:00 IMPRESSION: Fluoroscopic assistance images were obtained. Pertinent findings noted above. Electronically Signed: Ernie Hopkins MD at 19:27 EDT , Cholangiogram 12/23/21 14:20 IMPRESSION: Dilated central intrahepatic biliary ducts and common bile duct. Biliary stent is seen. Multiple stones are seen in the common bile duct. Contrast is seen entering the duodenum. Electronically Signed: Wesley Benitez MD at 15:34 EDT , Physical Exam Const oriented x3 and no apparent distress Constitutional Narrative: Patient appears to be sleepy-she is being examined postop today, she easily wakes up with verbal stimulation General Appearance: cooperative, well kempt and well developed Orientation / Consciousness: oriented to person, oriented to place and oriented to time HEENT normocephalic, head/scalp atraumatic and moist oral mucous membranes Eyes PERRL, EOMs intact bilaterally and conjunctivae normal Neck supple, no JVD, thyroid normal and no carotid bruits General: trachea midline Resp normal respiratory effort, no retractions, no use of accessory muscles and clear to auscultation bilaterally Auscultation: Negative for rales, rhonchi or wheezes Cardio regular rate, regular rhythm, S1 normal heart sound, S2 normal heart sound, no murmurs, no rub and no gallops Extremity no clubbing, cyanosis or edema Skin no rashes or lesions noted General Skin Exam: no breakdown Neuro oriented x3, CN's II-XII intact bilaterally, no focal motor deficits and no sensory deficits noted Sensorium / Orientation: awake and alert Speech: speech normal Psych affect normal Assessment & Plan Assessment/Plan (1) Choledocholithiasis: PLAN: Plan 1. Choledocholithiasis-patient underwent a cholecystectomy today via the laparoscope, she will undergo repeat ERCP with stone removal tomorrow #2 essential hypertension-patient's blood pressure is under control at this time, patient's blood pressure medication was being held at this time, I have elected to hold at and reevaluate her tomorrow. #3 hypokalemia-corrected at this time, patient was given potassium replacement, patient's potassium this morning was 3.9 #4 GERD-patient is on Protonix Charges/Coding Visit Charges Inpatient E&M: 64497 Subs Hosp L2
[2021-12-23] MEDS: Acetaminophen 325 MG Tablet 650 MG PO (20:54)
[2021-12-23] MEDS: hydrALAZINE 20 MG/ML Vial 5 MG IV (20:54)
[2021-12-24] VITALS (17 sets, daily range): BP systolic 141–174; BP diastolic 62–104; PULSE 72–145; RESP 15–20; TEMP 36.6–37.2; O2SAT 88–98; BMI 93.3
[2021-12-24] MEDS: Morphine 2 MG/ML Syringe IV ×2 (00:16→03:34)
[2021-12-24 07:48] LABS: Absolute Lymphocyte Count 1.96 X10^3/uL (0.83-4.51); Absolute Neutrophil Count 10.6 X10^3/uL (2.0-7.7); Basophil# 0.07 X10^3/uL; Basophil% 0.5 % (0-1); Eosinophil# 0.11 X10^3/uL; Eosinophils% 0.8 % (0-5); Hematocrit 35.6 % (37-47); Hemoglobin 11.3 g/dL (12.0-15.0); Lymphocyte # 1.96 X10^3/ul (0.83-4.51); Lymphocyte % 14.3 % (19-41); Mean Corp Hgb Conc 31.7 g/dL (32-36); Mean Corpuscular Hgb 26.8 pg (27.0-32.0); Mean Corpuscular Volume 84.6 fL (81-99); Mean Platelet Vol. 10.2 fl (6.2-12.0); Monocyte# 0.78 X10^3/uL; Monocyte% 5.7 % (0-10); NRBC Flagged by Analyzer 0 % (0-5); Neutrophil # 10.63 X10^3/uL (2.7-7.7); Neutrophil % 77.6 % (47-70); Platelet Count 481 K/mm3 (150-450); RBC Distribution Width SD 51.2 fl (35.1-43.9); Red Blood Count 4.21 M/mm3 (4.2-5.4); White Blood Count 13.7 K/mm3 (4.4-11.0)
[2021-12-24 08:11] LABS: AST(SGOT) 143 U/L (15-37); Alanine Aminotransfer ALT/SGPT 219 U/L (13-56); Albumin, Serum 2.2 g/dL (3.2-5.0); Alkaline Phosphatase 379 U/L (45-117); Anion Gap 10 (5-15); BUN 14 mg/dL (7-18); BUN/Creat Ratio 15.1 RATIO (10-20); Bilirubin, Direct 3.26 mg/dL (0.00-0.30); Calcium,Total 8.6 mg/dL (8.5-10.1); Chloride 113 mmol/L (98-107); Creatinine, Serum 0.93 mg/dL (0.55-1.02); EST Glomerular Filtration Rate 63 mL/min (>60); Est Glom Filt Rate - Afr Amer 76 mL/min (>60); Estimated Creatinine Clearance 47.22 ml/min; Globulin 4.4 g/dL (2.2-4.2); Glucose 85 mg/dL (74-106); Potassium 3.5 mmol/L (3.5-5.1); Protein, Total 6.6 g/dL (6.4-8.2); Sodium Level 144 mmol/L (136-145)
--- NOTE | 2021-12-24 09:45 | PN.SURG_ITS ---
Subjective Subjective Patient does have some pain on the right side of her abdomen however it is different than her previous pain prior to surgery. Likely due to incisions. Patient has been tolerating clears. Objective Data Objective Data Vital Signs: Vital Signs Temp Pulse Resp BP Pulse Ox O2 Del Method O2 Flow Rate 98.0 F 89 18 155/81 H 95 Room Air 2 12/24/21 08:56 12/24/21 08:56 12/24/21 08:56 12/24/21 08:56 12/24/21 08:56 12/24/21 08:56 12/24/21 03:29 Oxygen Flow Rate (L/min) 2 Oxygen Delivery Method Room Air Weight: 205 lb 11.06 oz Body Mass Index (BMI) 35.1 Intake & Output: Intake and Output for Last 24 Hours 12/22/21 12/23/21 12/24/21 23:59 23:59 23:59 Intake Total 2342.75 / 2342.75 3100.00 / 3570.00 1070 / 1070 Output Total 800 / 800 500 / 500 Balance 1542.75 / 1542.75 3100.00 / 3220.00 570 / 570 Lab / Micro Data Result Diagrams: 12/24/21 07:37 12/24/21 07:37 Labs: Laboratory Results - last 24 hr 12/23/21 09:20: Sodium 144, Potassium 3.9, Chloride 114 H, Carbon Dioxide 22.0, Anion Gap 8, BUN 15, Creatinine 0.85, Estim Creat Clear Calc 51.66, Est GFR (MDRD) Af Amer 85, Est GFR (MDRD) Non-Af 70, BUN/Creatinine Ratio 17.7, Glucose 98, Calcium 8.6, Total Bilirubin 4.80 H, Direct Bilirubin 4.24 H, AST 146 H, ALT 237 H, Alkaline Phosphatase 393 H, Total Protein 6.8, Albumin 2.3 L, Globulin 4.5 H 12/24/21 07:37: WBC 13.7 H, RBC 4.21, Hgb 11.3 L, Hct 35.6 L, MCV 84.6, MCH 26.8 L, MCHC 31.7 L, RDW Std Deviation 51.2 H, RDW Coeff of Lilian 17.0 H, Plt Count 481 H, MPV 10.2, Immature Gran % (Auto) 1.100 H, Neut % (Auto) 77.6 H, Lymph % (Auto) 14.3 L, [place] % (Auto) 5.7, Eos % (Auto) 0.8, Baso % (Auto) 0.5, Absolute Neuts (auto) 10.6 H, Absolute Lymphs (auto) 1.96, Nucleated RBC % 0 12/24/21 07:37: Sodium 144, Potassium 3.5, Chloride 113 H, Carbon Dioxide 21.0, Anion Gap 10, BUN 14, Creatinine 0.93, Estim Creat Clear Calc 47.22, Est GFR (MDRD) Af Amer 76, Est GFR (MDRD) Non-Af 63, BUN/Creatinine Ratio 15.1, Glucose 85, Calcium 8.6, Total Bilirubin 3.70 H, Direct Bilirubin 3.26 H, AST 143 H, ALT 219 H, Alkaline Phosphatase 379 H, Total Protein 6.6, Albumin 2.2 L, Globulin 4.4 H Radiography Diagnostic Testing: Radiology Impression Cholangiogram 12/23/21 14:20 IMPRESSION: Dilated central intrahepatic biliary ducts and common bile duct. Biliary stent is seen. Multiple stones are seen in the common bile duct. Contrast is seen entering the duodenum. Electronically Signed: Wesley Benitez MD at 15:34 EDT , Physical Exam Resp normal respiratory effort Cardio regular rate GI GI Narrative: Abdomen: Soft, nondistended, tender near incision's dressed clean dry and intact, no peritoneal signs Assessment & Plan Assessment/Plan (1) S/P laparoscopic cholecystectomy: (2) S/P ERCP: PLAN: Plan Patient scheduled for repeat ERCP due to large stones in the common bile duct. Patient seems to have the right-sided pain is near incisions. Okay for a diet when okay with GI. Nora Albright M.D. Pager: [phone] [facility] [address] [place] [address], [facility], [address] [place] [address] Office: [phone]
[2021-12-24] MEDS: 0.9% Normal Saline 1,000 ML 100 ML IV ×2 (10:16→20:53)
[2021-12-24] MEDS: Acetaminophen 325 MG Tablet 650 MG PO ×2 (10:16→21:05)
--- NOTE | 2021-12-24 14:17 | CHAPLAIN ---
Type of Pastoral Visit _x__ Initial Visit ___ Follow-up Visit ___ On-call Visit ___ General Patient Visit ___ Spiritual Assessment ___ Family Conference ___ Bereavement ___ Rapid Response ___ Code Blue ___ Other (describe below) Pastoral Care Referral From _x__ Patient ___ Family ___ Nurse ___ Physician ___ Pony Trimmer ___ Loan Interviewer ___ Other (describe below) Sacrament/Intervention _x__ Active listening ___ Anointing ___ Sabianism ___ Bereavement ___ Communion ___ Ghislaine exploration ___ ___ Life review _x__ Prayer ___ Reconciliation ___ Sacrament of Sick _x__ Supportive presence ___ Wedding ___ Other (describe below) Pastoral Comments patient reports on how all this was so unexpected and then I had to stay several nights in the hospital; pt states that she will go to surgery again in a couple of hours and does welcome prayer support; pt expresses great satisfaction with everyone at this hospital, this is the best hospital I have ever been to;
--- NOTE | 2021-12-24 15:17 | CASEMGMT ---
Social Work SW attempted to validate pt AD. Pt sleeping and pt nurse indicated allowing pt to sleep would be best option at this time as pt struggled this morning and would benefit from the rest. SW to follow and validate AD tomorrow. VERN Conti
--- NOTE | 2021-12-24 16:21 | PCM.PN.HOSP ---
Subjective Subjective Patient was seen and examined today, her daughter was in the room during the time of my examination. Patient is set to undergo an ERCP today with laser lithotripsy. Patient does not complain of any shortness of breath, fevers, or chills. Objective Data Objective Data Vital Signs: Vital Signs Temp Pulse Resp BP Pulse Ox O2 Del Method O2 Flow Rate 98.0 F 89 18 155/81 H 95 Room Air 2 12/24/21 08:56 12/24/21 08:56 12/24/21 08:56 12/24/21 08:56 12/24/21 08:56 12/24/21 08:56 12/24/21 03:29 Oxygen Flow Rate (L/min) 2 Oxygen Delivery Method Room Air Weight: 93.3 kg Body Mass Index (BMI) 35.1 Intake & Output: Intake and Output for Last 24 Hours 12/22/21 12/23/21 12/24/21 23:59 23:59 23:59 Intake Total 2342.75 / 2342.75 3100.00 / 3570.00 2230 / 2230 Output Total 800 / 800 500 / 500 Balance 1542.75 / 1542.75 3100.00 / 3220.00 1730 / 1730 Lab / Micro Data Result Diagrams: 12/24/21 07:37 12/24/21 07:37 Labs: Laboratory Results - last 24 hr 12/24/21 07:37: WBC 13.7 H, RBC 4.21, Hgb 11.3 L, Hct 35.6 L, MCV 84.6, MCH 26.8 L, MCHC 31.7 L, RDW Std Deviation 51.2 H, RDW Coeff of Lilian 17.0 H, Plt Count 481 H, MPV 10.2, Immature Gran % (Auto) 1.100 H, Neut % (Auto) 77.6 H, Lymph % (Auto) 14.3 L, [place] % (Auto) 5.7, Eos % (Auto) 0.8, Baso % (Auto) 0.5, Absolute Neuts (auto) 10.6 H, Absolute Lymphs (auto) 1.96, Nucleated RBC % 0 12/24/21 07:37: Sodium 144, Potassium 3.5, Chloride 113 H, Carbon Dioxide 21.0, Anion Gap 10, BUN 14, Creatinine 0.93, Estim Creat Clear Calc 47.22, Est GFR (MDRD) Af Amer 76, Est GFR (MDRD) Non-Af 63, BUN/Creatinine Ratio 15.1, Glucose 85, Calcium 8.6, Total Bilirubin 3.70 H, Direct Bilirubin 3.26 H, AST 143 H, ALT 219 H, Alkaline Phosphatase 379 H, Total Protein 6.6, Albumin 2.2 L, Globulin 4.4 H Physical Exam Const alert, oriented x3, no apparent distress and healthy appearing General Appearance: cooperative, well kempt and well developed Orientation / Consciousness: awake, oriented to person, oriented to place and oriented to time HEENT normocephalic, head/scalp atraumatic and moist oral mucous membranes Eyes PERRL, EOMs intact bilaterally and conjunctivae normal Neck supple, no JVD, thyroid normal and no carotid bruits General: trachea midline Resp normal respiratory effort, no retractions, no use of accessory muscles and clear to auscultation bilaterally Auscultation: Negative for rales, rhonchi or wheezes Cardio regular rate, regular rhythm, S1 normal heart sound, S2 normal heart sound, no murmurs, no rub and no gallops GI soft to palpation and non-distended Extremity no clubbing, cyanosis or edema Skin no rashes or lesions noted General Skin Exam: no breakdown Neuro oriented x3, CN's II-XII intact bilaterally, no focal motor deficits and no sensory deficits noted Sensorium / Orientation: awake and alert Speech: speech normal Psych affect normal Assessment & Plan Assessment/Plan (1) Choledocholithiasis: PLAN: Plan 1. Choledocholithiasis-patient will undergo an ERCP today for removal of several common bile duct stones after laser lithotripsy, patient is postop day #1 laparoscopic cholecystectomy. #2 essential hypertension-patient's blood pressure is under control at this time, patient's blood pressure medication was being held at this time, I have elected to hold at and reevaluate her tomorrow. #3 hypokalemia-corrected at this time, patient was given potassium replacement, patient's potassium this morning was 3.5 #4 GERD-patient is on Protonix Charges/Coding Visit Charges Inpatient E&M: 98397 Subs Hosp L2
--- NOTE | 2021-12-24 16:24 | NURSING ---
attempt to call report to [phone] unsucessful, no answer
--- NOTE | 2021-12-24 18:05 | RAD_ITS ---
EXAM: INTRAOPERATIVE CHOLANGIOGRAM FLUOROSCOPY TIME: 212 sec RADIATION DOSE: 66.2 mGy TOTAL NUMBER OF IMAGES: 1 COMPARISON: None. PROVIDED CLINICAL HISTORY: STONES PAIN TECHNIQUE: The examination was performed with physician in attendance. Under fluoroscopic observation, fluoroscopic images were obtained in the operating room. FINDINGS: First image demonstrates surgical instruments overlying the [id number]. Contrast is identified in a cannulated common bile duct. Retrograde contrast is notseen in the pancreatic duct. Contrast is not noted in the proximal duodenum. Contrast is seen in the intrahepatic ducts. RAD/ERCP Biliary Only IMPRESSION: Fluoroscopic assistance images were obtained. Pertinent findings noted above. Electronically Signed: Ernie Hopkins MD at 20:02 EDT ,
--- NOTE | 2021-12-24 19:01 | OP.ERCP_ITS ---
Patient Name: Irish Lagos Procedure Date: 12/24/2021 5:21 PM Date of : 1950 Age: 71 Procedure: ERCP Indications: Abdominal pain of suspected biliary origin, Bile duct stone(s) Providers: Antoine Fritz DO Medicines: Monitored Anesthesia Care Patient Profile: This is a 71 year old female. Refer to note in patient chart for documentation of history and physical. Patient has symptoms. She is status post laparoscopic cholecystectomy recently. Complications: No immediate complications. Procedure: Pre-Anesthesia Assessment: - Prior to the procedure, a History and Physical was performed, and patient medications and allergies were reviewed. The patient is competent. The risks and benefits of the procedure and the sedation options and risks were discussed with the patient. All questions were answered and informed consent was obtained. Patient identification and proposed procedure were verified by the physician in the pre-procedure area. Mental Status Examination: alert and oriented. Airway Examination: normal oropharyngeal airway and neck mobility. Respiratory Examination: clear to auscultation. CV Examination: normal. Prophylactic Antibiotics: The patient does not require prophylactic antibiotics. Prior Anticoagulants: The patient has taken no previous anticoagulant or antiplatelet agents. ASA Grade Assessment: II - A patient with mild systemic disease. After reviewing the risks and benefits, the patient was deemed in satisfactory condition to undergo the procedure. The anesthesia plan was to use moderate sedation / analgesia (conscious sedation). Immediately prior to administration of medications, the patient was re-assessed for adequacy to receive sedatives. The heart rate, respiratory rate, oxygen saturations, blood pressure, adequacy of pulmonary ventilation, and response to care were monitored throughout the procedure. The physical status of the patient was re-assessed after the procedure. After obtaining informed consent, the scope was passed under direct vision. Throughout the procedure, the patient's blood pressure, pulse, and oxygen saturations were monitored continuously. The Duodenoscope was introduced through the mouth, and advanced to the duodenum and used to inject contrast into the bile duct. The ERCP was accomplished without difficulty. The patient tolerated the procedure well. Scope In: 5:40:51 PM Scope Out: 6:51:50 PM Total Procedure Duration Time 1 hour 10 minutes 59 seconds Findings: The gift shop manager film was normal. The esophagus was successfully intubated under direct vision. The scope was advanced to a normal major papilla in the descending duodenum without detailed examination of the pharynx, larynx and associated structures, and upper GI tract. The upper GI tract was grossly normal. The bile duct was deeply cannulated with the short-nosed traction sphincterotome. Contrast was injected. I personally interpreted the bile duct images. The main bile duct contained three stones, the largest of which was 6 mm in diameter. The main bile duct was diffusely dilated, with a stone causing an obstruction. The largest diameter was 10 mm. A cholecystectomy had been performed. A straight Roadrunner wire was passed into the biliary tree. A 5 mm biliary sphincterotomy was made with a traction (standard) sphincterotome using ERBE electrocautery. There was no post-sphincterotomy bleeding. The biliary tree was swept with a 15 mm balloon starting at the bifurcation. Sludge was swept from the duct. All stones were removed. Fluid aspiration for bacterial cultures was performed in the left main hepatic duct. One stent was removed from the biliary tree using a rat-toothed forceps. The bile duct was explored endoscopically using the Viki direct visualization system. The SpyScope was advanced to the middle third of the main bile duct. Visibility with the scope was excellent. The common hepatic duct contained three stones, the largest of which was 6 mm in diameter. Electrohydraulic lithotripsy was successful. Impression: - The entire main bile duct was dilated, with a stone causing an obstruction. - The patient has had a cholecystectomy. - Choledocholithiasis was found. Complete removal was accomplished by biliary sphincterotomy and balloon extraction. - A biliary sphincterotomy was performed. - The biliary tree was swept. - Fluid aspiration was performed. - One stent was removed from the biliary tree. - Lithotripsy was successful. Procedure Code(s): --- Professional --- 97438, Endoscopic retrograde cholangiopancreatography (ERCP); with destruction of calculi, any method (eg, mechanical, electrohydraulic, lithotripsy) 52555, Endoscopic retrograde cholangiopancreatography (ERCP); with removal of foreign body(s) or stent(s) from biliary/pancreatic duct(s) 11882, Endoscopic retrograde cholangiopancreatography (ERCP); with sphincterotomy/papillotomy 82476, Endoscopic cannulation of papilla with direct visualization of pancreatic/common bile duct(s) (List separately in addition to code(s) for primary procedure) 58246, 26, Endoscopic catheterization of the biliary ductal system, radiological supervision and interpretation CPT copyright 2017 [employer]. All rights reserved. The codes documented in this report are preliminary and upon sawmill relief worker review may be revised to meet current compliance requirements. Antoine Fritz DO 12/24/2021 7:00:49 PM This report has been signed electronically. Number of Addenda: 0 Note Initiated On: 12/24/2021 5:21 PM
--- NOTE | 2021-12-24 19:01 | OP.CCLET_ITS ---
12/24/2021 Sonja Esparza Re : ERCP procedure for Irish Lagos Dear Isaias This procedure was performed on November. My impressions and recommendations are as follows: Impressions : - The entire main bile duct was dilated, with a stone causing an obstruction. - The patient has had a cholecystectomy. - Choledocholithiasis was found. Complete removal was accomplished by biliary sphincterotomy and balloon extraction. - A biliary sphincterotomy was performed. - The biliary tree was swept. - Fluid aspiration was performed. - One stent was removed from the biliary tree. - Lithotripsy was successful. Recommendations : My findings are described in the full procedure note, which is enclosed. If I can be of further assistance, please feel free to contact me at . Sincerely, Antoine Fritz, 12/24/2021 7:00:49 PM This report has been signed electronically.
[2021-12-24 19:38] LABS: Hematocrit 38.3 % (37-47); Hemoglobin 12.2 g/dL (12.0-15.0); Mean Corp Hgb Conc 31.9 g/dL (32-36); Mean Corpuscular Hgb 27.1 pg (27.0-32.0); Mean Corpuscular Volume 84.9 fL (81-99); Mean Platelet Vol. 10.1 fl (6.2-12.0); Platelet Count 458 K/mm3 (150-450); RBC Distribution Width CV 16.9 % (11.6-14.6); RBC Distribution Width SD 51.7 fl (35.1-43.9); Red Blood Count 4.51 M/mm3 (4.2-5.4); White Blood Count 11.5 K/mm3 (4.4-11.0)
[2021-12-24 19:51] LABS: Magnesium 1.7 mg/dL (1.6-2.6); Phosphorus 2.8 mg/dL (2.5-4.9)
[2021-12-24 19:53] LABS: Anion Gap 8 (5-15); BUN 11 mg/dL (7-18); BUN/Creat Ratio 11.2 RATIO (10-20); Calcium,Total 8.5 mg/dL (8.5-10.1); Chloride 112 mmol/L (98-107); Creatinine, Serum 0.98 mg/dL (0.55-1.02); EST Glomerular Filtration Rate 59 mL/min (>60); Est Glom Filt Rate - Afr Amer 72 mL/min (>60); Estimated Creatinine Clearance 44.81 ml/min; Glucose 124 mg/dL (74-106); Sodium Level 144 mmol/L (136-145); Troponin-I HS 11 pg/mL (3.0-54.0)
--- NOTE | 2021-12-24 20:06 | PCM.PN.BLA ---
Progress Note Received a call from anesthesiologist at PACU the patient is having frequent PACs. Reportedly patient denies any chest pain. Potassium 4.0. Magnesium 1.7. 4 g of magnesium ordered. Patient level of care will be changed from standard MedSurg to telemetry MedSurg. CMP and CBC in a.m. ordered.
[2021-12-24] MEDS: Magnesium Sulfate 4gm/100mL 4 GM/100 ML IV.SOLN. IV (20:53)
[2021-12-24] MEDS: oxyCODONE 5 MG Tablet PO (23:25)
[2021-12-25] VITALS (8 sets, daily range): BP systolic 136–144; BP diastolic 65–76; PULSE 73–101; RESP 15–16; TEMP 36.8–37.1; O2SAT 85–100; BMI 93.3
[2021-12-25] MEDS: Acetaminophen 325 MG Tablet 650 MG PO (05:08)
[2021-12-25 05:57] LABS: Absolute Lymphocyte Count 0.92 X10^3/uL (0.83-4.51); Basophil# 0.01 X10^3/uL; Basophil% 0.1 % (0-1); Hematocrit 32.1 % (37-47); Hemoglobin 10.4 g/dL (12.0-15.0); Lymphocyte # 0.92 X10^3/ul (0.83-4.51); Lymphocyte % 11.1 % (19-41); Mean Corp Hgb Conc 32.4 g/dL (32-36); Mean Corpuscular Hgb 26.7 pg (27.0-32.0); Mean Corpuscular Volume 82.3 fL (81-99); Mean Platelet Vol. 10.6 fl (6.2-12.0); Monocyte% 3.6 % (0-10); NRBC Flagged by Analyzer 0 % (0-5); Neutrophil # 6.95 X10^3/uL (2.7-7.7); Neutrophil % 84.2 % (47-70); Platelet Count 395 K/mm3 (150-450); RBC Distribution Width CV 16.5 % (11.6-14.6); RBC Distribution Width SD 48.4 fl (35.1-43.9); White Blood Count 8.3 K/mm3 (4.4-11.0)
--- NOTE | 2021-12-25 06:11 | NURSING ---
IV medications late due to Magnesium needing infused and patient refusing an additional IV placed.
[2021-12-25] MEDS: 0.9% Normal Saline 1,000 ML 100 ML IV (06:28)
[2021-12-25 06:31] LABS: ALB/GLOB Ratio 0.5 RATIO (0.9-2.4); AST(SGOT) 103 U/L (15-37); Alanine Aminotransfer ALT/SGPT 182 U/L (13-56); Alkaline Phosphatase 329 U/L (45-117); Anion Gap 10 (5-15); BUN 8 mg/dL (7-18); BUN/Creat Ratio 11.3 RATIO (10-20); Chloride 109 mmol/L (98-107); Creatinine, Serum 0.71 mg/dL (0.55-1.02); EST Glomerular Filtration Rate 86 mL/min (>60); Est Glom Filt Rate - Afr Amer 104 mL/min (>60); Estimated Creatinine Clearance 43.91 ml/min; Globulin 4.2 g/dL (2.2-4.2); Glucose 115 mg/dL (74-106); Potassium 3.2 mmol/L (3.5-5.1); Protein, Total 6.2 g/dL (6.4-8.2); Sodium Level 142 mmol/L (136-145)
--- NOTE | 2021-12-25 10:49 | PCM.DC ---
Discharge Instructions Diet Discharge Diet: Light diet - advance as tolerated Activity Discharge Activity: Return to Normal Activity May shower in (days): 1 Weight Bearing Status: Full weight bearing Dressing / Incision Call your doctor if your incision/area has: Continuous Slow Oozing, Sudden Increased Bleeding, Increased Pain/ Swelling, Increased Redness, Foul Smelling Discharge and Swelling at the incision site Call your doctor if you observe: Fever of 101 or Higher Cleanse incision/area with: Soap & Water Additional Dressing/Incision Instructions:: Steri-Strips will fall off in 7 to 10 days, if they do not fall off okay to remove after 10 days. Follow Up Care Please Follow Up With: Nora Albright MD Test Results: Test results from this visit will be discussed in further detail at your follow-up appointment, if applicable. Discharge Plan Admission Admit Date/Time: 12/22/21 09:03 Primary Reason for Your Visit: choledocholithiasis Attending Provider: Raul Irby Primary Care Provider: Sonja Esparza Consulting Providers: Frederic Kevin ; Nora Albright Instructions Additional Instructions / Restrictions: Okay to take ibuprofen 400-600 mg PO q6hr PRN along with the Percocet. Avoid Tylenol since there is already Tylenol in the Percocet. Take all pain meds with food. Percocet can cause constipation recommend taking daily stool softener (i.e. Colace/docusate) while taking the pain meds. Recommend starting some MiraLAX in 1 to 2 days if no bowel movement. If still no bowel movement the following day recommend taking magnesium citrate half the bottle and waiting 4-6 hours if still no results take the other half the bottle. Discharge Orders/Prescriptions Prescriptions: New oxycodone-acetaminophen 5-325 mg tablet 1 tab PO Q6H PRN (Reason: pain) 3 Days Qty: 10 0RF Continued omeprazole 20 mg capsule,delayed release(DR/EC) 20 mg PO DAILY olmesartan 20 mg tablet 20 mg PO DAILY Referrals / Follow Up: Sonja Esparza MD [Primary Care Provider] - See Referral Note (at next visit) Antoine Fritz DO [Med Staff - Active Staff] - See Referral Note (call to arrange follow up-see if it is needed) Nora Albright MD [Med Staff - Active Staff] - See Referral Note (call to schedule appointment for two weeks) Disposition Disposition (needs filled in before D/C Order can be placed): Home, Self Care
[2021-12-25] MEDS: oxyCODONE 5 MG Tablet PO (11:54)
--- NOTE | 2021-12-25 12:48 | CASEMGMT ---
Social Work SW spoke with pt regarding advance directives. Pt has a Living Will card. SW made a copy and placed on pt chart. Pt states she does have a HCPOA naming her daughter Sonja Funk. SW informed pt that copy of HCPOA is not on file and requested a copy be brought in for scanning. VERN Live
--- NOTE | 2022-01-07 14:05 | PCM.DC.SUM ---
Providers Date of Admission: 12/22/21 Date of Discharge: 12/25/21 Primary Care Physician: Dr. Sonja Esparza MD Consultations 12/21/21 21:03 Consult: Gastroenterology Routine Consulting Provider: [facility] Reason for Consult: Choledocholithiasis EMERGENT Consult: No Notified: Yes Date Notified: 12/21/21 Time Notified: 21:04 Method of Notification: Verbal 12/22/21 06:42 Consult: General Surgery Routine Consulting Provider: Nora Albright Reason for Consult: choledocholithiasis EMERGENT Consult: No Notified: Yes Date Notified: 12/22/21 Time Notified: 06:43 Method of Notification: Text Reason For Visit: CHLOEDOCHLITHIASIS Diagnosis Discharge Diagnosis (1) Choledocholithiasis: Status: Resolved Code(s): K80.50 - Calculus of bile duct without cholangitis or cholecystitis without obstruction Plan 1. Choledocholithiasis #2 Acute cholecystitis #3 essential hypertension #4 hypokalemia #5 GERD #6 cholelithiasis Medications at Discharge Home Medications olmesartan 20 mg tablet 20 mg PO DAILY HTN 12/21/21 omeprazole 20 mg capsule,delayed release 20 mg PO DAILY GERD 12/21/21 oxycodone-acetaminophen 5 mg-325 mg tablet 1 tab PO Q6H PRN pain 3 days #10 tabs 12/24/21 Hospital Course Operations - (Laparoscopic cholecystectomy with cholangiograms) Procedures - (ERCP with biliary sphincterotomy and balloon extraction of common bile duct stones, biliary lithotripsy) Summary of Care Provided Minutes Spent on Discharge: 32 Hospital Course: 71-year-old white female presented from an outside emergency room with complaints of abdominal pain, she was transferred to [facility] as a direct admission for gastroenterology support. Lab performed at the time of transfer to the hospital here was remarkable for a potassium of 3.3, alkaline phos was elevated at 451, patient's ALT was elevated at 309. Ultrasound was obtained before the patient was admitted here showed a distended gallbladder with focal mildly increased attenuation in the dependent aspect of the gallbladder representing sludge or small calculi, common bile duct was dilated with the suggestion of an 8 mm calculus or debris at the ampulla of Vater. Patient was admitted to [place] [id number], she was given IV fluids, IV antibiotics, seen in consultation by gastroenterology and general surgery, ERCP was performed with biliary sphincterotomy, insertion of a stent, and partial removal of choledocholithiasis. Patient then underwent a laparoscopic cholecystectomy with intraoperative cholangiograms the next day. There were no major complications from her surgery. She then underwent another ERCP on 12/24/2021 with lithotripsy and removal of stones from common bile duct. On 12/25/2021, patient was seen and examined: On examination she appeared in good health and spirits, she does not appear to be in any distress. Vital signs as documented. Skin warm and dry and without overt rashes. Neck without JVD, thyroid appears normal, trachea is midline, neck is supple. Lungs clear, normal air movement was noted. Heart exam notable for regular rhythm, normal sounds and absence of murmurs, rubs or gallops. Abdomen unremarkable and without evidence of organomegaly, masses, or abdominal aortic enlargement, bowel sounds are present in all 4 quadrants, no abdominal tenderness was noted. Extremities nonedematous, no cyanosis was noted, no clubbing was noted. Neuro: Cranial nerves II through XII are grossly intact, no focal motor deficits were noted, sensation to light touch and pinprick is intact, motor exam 5/5 throughout. Psych: Patient is alert and oriented x3, she does not appear anxious or depressed, she does not appear agitated. Patient appeared to be stable for discharge home on 12/25/2021. Weight / BMI Weight Weight: 93.3 kg Body Mass Index (BMI) 35.1 ABG / Lab / Microbiology Data Result Diagrams: 12/25/21 05:35 12/25/21 05:35 D/C Instructions Discharge Diet: Light diet - advance as tolerated May shower in (days): 1 Weight Bearing Status: Full weight bearing Call your doctor if your incision/area has: Continuous Slow Oozing, Sudden Increased Bleeding, Increased Pain/ Swelling, Increased Redness, Foul Smelling Discharge and Swelling at the incision site Call your doctor if you observe: Fever of 101 or Higher Cleanse incision/area with: Soap & Water Additional Dressing/Incision Instructions: Steri-Strips will fall off in 7 to 10 days, if they do not fall off okay to remove after 10 days. Please Follow Up With: Nora Albright MD When: Call the office for a follow-up appointment 2 weeks; after 5 PM and on the weekends call [phone] with any concerns. Meaningful Use Info Meaningful Use Diagnoses (Choose all that apply): None applicable Discharge Plan Admission Admit Date/Time: 12/22/21 09:03 Primary Reason for Your Visit: choledocholithiasis Attending Provider: Raul Irby Primary Care Provider: Sonja Esparza Consulting Providers: Frederic Kevin ; Nora Albright Instructions Additional Instructions / Restrictions: Okay to take ibuprofen 400-600 mg PO q6hr PRN along with the Percocet. Avoid Tylenol since there is already Tylenol in the Percocet. Take all pain meds with food. Percocet can cause constipation recommend taking daily stool softener (i.e. Colace/docusate) while taking the pain meds. Recommend starting some MiraLAX in 1 to 2 days if no bowel movement. If still no bowel movement the following day recommend taking magnesium citrate half the bottle and waiting 4-6 hours if still no results take the other half the bottle. Discharge Orders/Prescriptions Prescriptions: New oxycodone-acetaminophen 5-325 mg tablet 1 tab PO Q6H PRN (Reason: pain) 3 Days Qty: 10 0RF Continued omeprazole 20 mg capsule,delayed release(DR/EC) 20 mg PO DAILY olmesartan 20 mg tablet 20 mg PO DAILY Referrals / Follow Up: Sonja Esparza MD [Primary Care Provider] - See Referral Note (at next visit) Antoine Fritz DO [Med Staff - Active Staff] - See Referral Note (call to arrange follow up-see if it is needed) Nora Albright MD [Med Staff - Active Staff] - See Referral Note (call to schedule appointment for two weeks) Disposition Disposition (needs filled in before D/C Order can be placed): Home, Self Care Charges/Coding Visit Charges Inpatient E&M: 71056 Disch Hosp
== END 2021-12-25 13:28 | disposition home or self-care (01) | DRG 419 ==
PROVIDERS: Anesthesiology; Internal Medicine Gastroenterology; Nurse Practitioner Family; Surgery; Admitting Provider Hospitalist; PCP Family Medicine; Visit Provider Internal Medicine
PROC: 0F798DZ Dilation of Common Bile Duct with Intraluminal Device, Via Natural or Artificial Opening Endoscopic (ICD-10-PCS; CPT 43260; principal; 2021-12-22 16:55)
PROC: 0FT44ZZ Resection of Gallbladder, Percutaneous Endoscopic Approach (ICD-10-PCS; CPT 47610; principal; 2021-12-23 13:10)
PROC: [UNRECOGNIZED PROCEDURE] (CPT 43260; principal; 2021-12-24 17:10)
DX: K80.63 Calculus of gallbladder and bile duct with acute cholecystitis with obstruction (principal); E87.6 Hypokalemia; K21.9 Gastro-esophageal reflux disease without esophagitis; I10 Essential (primary) hypertension; I49.1 Atrial premature depolarization; Z79.899 Other long term (current) drug therapy
CPT/HCPCS: 36415; 74300; 74328; 74330; 76000; 80048; 80053; 80076; 83735; 84100; 84484; 85025; 85027; 88304; 93005; 97161; 97165; 99251; J7030; J7050; J7120; A4216; G0463; J2405

== ENCOUNTER → 2022-11-09 | Outpatient (CLI) | payer MEDICARE, OTHER, SELFPAY ==
--- NOTE | 2022-11-09 08:36 | NM_ITS ---
CLINICAL: 82-year-old female with suspected loosening of the right knee prosthesis. DUAL PHASE knee articulations - WHOLE BODY RADIONUCLIDE 99m Tc MDP BONE SCINTIGRAPHY COMPARISON: None available FINDINGS: Following the intravenous administration of 26.2 mCi of 99m Tc MDP, bone images reveal: 1. The immediate static blood pool acquisitions of the knee articulations demonstrate focal venous phase hyperemia apparent in the lateral femoral component of the left knee arthroplasty. 2. Delayed images reveal increased uptake in the patellofemoral compartments of both knees, the lateral and to lesser extent medial tibial compartments of the right knee prosthesis, the visualized medial and lateral femoral and tibial components of the asymptomatic left knee arthroplasty. 3. Increased uptake is noted in the acromioclavicular, glenohumeral, sternoclavicular compartments of both shoulders, the lower cervical spine posteriorly on the left, the bilateral midfoot, the visualized left wrist and hand, the patellofemoral compartments of both knees. 4. The remaining skeletal structures are scintigraphically unremarkable with normal-appearing renal images and urinary bladder activity identified. NM/Bone Scan Whole Body IMPRESSION: 1. The increase in uptake defined in the medial and lateral tibial components of the symptomatic right knee arthroplasty likely represents a component of loosening. The specificity of this finding is facilitated in the setting of operative intervention occurring > 2 years prior to the current presentation. If infection is a diagnostic consideration, correlation with labeled leukocyte imaging is recommended. 2. Increased uptake noted in the presumed asymptomatic left knee arthroplasty is most consistent with normal postsurgical change. 3. Degenerative arthritis appears evident in the bilateral shoulders, cervical spine, the bilateral midfoot, the left hand and wrist, the patellofemoral compartments of both knees in the absence of patellar hardware placement. Electronically Signed: iTago Pandey, at 22:18 EDT ,
== END | disposition home or self-care (01) ==
LOC: NM 08:35
PROVIDERS: PCP Family Medicine; Referring Provider Orthopaedic Surgery; Visit Provider Orthopaedic Surgery
DX: Z96.651 Presence of right artificial knee joint (principal)
CPT/HCPCS: 78306; A9503

== ENCOUNTER → 2023-08-25 | Outpatient (CLI) | payer MEDICARE, OTHER, SELFPAY ==
--- NOTE | 2023-08-25 10:22 | NEURO ---
NCS and/or EMG Patient Report Ordering Doctor: Elly Montes DATE OF SERVICE: 08/25/23 Clinical Summary: 73 year old female patient with symptoms of right knee pain. She denies having any numbness, tingling, or pain that radiates down the distal right lower extremity to the foot. She denies having any back pain. Nerve Conduction Studies Summary: The right peroneal-EDB CMAP amplitude was reduced diffusely. The right peroneal motor conduction velocity was reduced at the fibular head. The right tibial-AH CMAP amplitude was reduced at the knee. Needle Examination Summary: Needle examination of select muscles of the right lower extremity demonstrated a higher proportion of motor unit action potentials with reduced recruitment, increased amplitude, increased duration, and polyphasia in the right tibialis anterior, peroneus longus, and flexor digitorum longus muscles. Impression: Chronic neurogenic changes were seen in multiple muscles of the right L5 myotome, which is suggestive, but not definitively diagnostic, of a chronic, right L5 radiculopathy. Clinical correlation is advised as this electrodiagnostic finding would not adequately explain the patient's specific symptoms/complaints. There is no electrodiagnostic evidence of a right peroneal mononeuropathy at the fibular head. Some lower motor amplitude responses at or in the vicinity of the knee can be attributed due to the patient's body habitus including increased localized adipose tissue, which can hamper nerve conductions. Multi Select Codes Neurology Neurology Interp Codes: 23170-36 Musc test done w/n test comp (interp) (1), 67798-51 EMG, Non Extremity w/ NCS and 31152-05 Nrv cndj tst 5-6 studies (interp)
== END | disposition home or self-care (01) ==
LOC: PSN 08:25
PROVIDERS: PCP Family Medicine; Referring Provider Family Medicine; Visit Provider Family Medicine
DX: M79.604 Pain in right leg (principal)
CPT/HCPCS: 95886; 95909

== ENCOUNTER → 2024-11-19 | Outpatient (CLI) | payer MEDICARE, OTHER, SELFPAY ==
--- NOTE | 2024-11-19 12:46 | US_ITS ---
PROCEDURE: KIDNEY AND BLADDER 11/19/2024 REASON FOR EXAM: URINARY TRACT INFECTION TECHNIQUE: KIDNEY AND BLADDER COMPARISON: None FINDINGS: Kidneys: Normal renal sizes, parenchymal thicknesses, and echotextures. Duchesne: No hydronephrosis Cysts or Masses: No cysts or large solid renal masses. Other: RIGHT Kidney Size: 9.4 cm x 4.6 cm x 4.1 cm Volume: 90.82 mL Delete Cortical Thickness (if discernible): 9 mm (>6mm is normal) LEFT Kidney Size: 9.8 cm x 5 cm x 4.9 cm Volume: 125.71 mL Cortical Thickness (if discernible): 11 mm (>6mm is normal) The urinary bladder is unremarkable. US/Kidney and Bladder IMPRESSION: NORMAL RENAL ULTRASOUND. Reading Location: [id number]
== END | disposition home or self-care (01) ==
LOC: US 12:39
PROVIDERS: PCP Family Medicine; Referring Provider Urology; Visit Provider Urology
DX: N39.0 Urinary tract infection, site not specified (principal); N81.11 Cystocele, midline; N95.2 Postmenopausal atrophic vaginitis
CPT/HCPCS: 76770